=== PATIENT | female | born 1945 | race Caucasian/White ===

== ENCOUNTER 2019-07-06 08:39 | Emergency (ER) | payer MEDICARE, OTHER ==
[2019-07-06] MEDS: Sodium Chloride 0.9% 10 ML Syringe FLUSH PRN ×2 (08:55→09:05)
--- NOTE | 2019-07-06 09:07 | EDM.PDOC ---
ED HPI GENERAL MEDICAL PROBLEM - General Chief Complaint: Chest Pain Stated Complaint: CHEST PAIN Time Seen by Provider: 07/06/19 09:06 - History of Present Illness INITIAL COMMENTS - FREE TEXT/NARRATIVE: 73-year-old female presents emergency room with chest pain. This pain has been going on for couple of days. The patient has chronic upper back pain but now this is extending into her chest. At this moment she does not have chest discomfort. This pain is triggered by doing things with her arms and it usually makes the back pain worse first. 2 days ago she had some discomfort with deep breathing but this seems to gotten better. Patient denies any fevers or chills. She has not had any recent illnesses. Patient does not have a history of coronary artery disease however she has a significant history of hypertension on multiple medications, and is treated for hyperlipidemia. No history of smoking or other illicit drug use. At times the patient has had some mild nausea with the chest discomfort however the chest discomfort is not brought on by walking. She has not had any radiating pain into her neck and jaw or arms. Chest Pain Score (Numeric/FACES): 2 - Related Data Allergies Allergy/AdvReac Type Severity Reaction Status Date / Time No Known Allergies Allergy Verified 07/06/19 08:46 Home Meds: Home Meds Atenolol [Tenormin] 100 mg PO DAILY 07/09/15 [History] Calcium Carbonate/Vitamin D3 [Calcium 1,000 + D3 Caplet] 1 tab PO BID 07/09/15 [ History] Cholecalciferol (Vitamin D3) [Vitamin D] 1,000 unit PO DAILY 07/09/15 [History] Hydrochlorothiazide/Lisinopril [Lisinopril-HCTZ 20-25 MG] 2 tab PO DAILY [History] Multivitamin [Daily Multiple Vitamin] 1 tab PO DAILY 07/09/15 [History] Omeprazole 20 mg PO ACBRK 07/09/15 [History] Simvastatin [Zocor] 10 mg PO BEDTIME 07/09/15 [History] amLODIPine [Norvasc] 10 mg PO DAILY 07/09/15 [History] Aspirin [Halfprin] 81 mg PO DAILY 07/06/19 [History] Past Medical History HEENT History: Reports: Cataract, Impaired Vision Other HEENT History: wears eye glasses Cardiovascular History: Reports: Hypertension Gastrointestinal History: Reports: Other (See Below) Other Gastrointestinal History: perferated bowel 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: Musculoskeletal History: Reports: Fracture - Infectious Disease History Infectious Disease History: Reports: Chicken Pox, Mumps - Past Surgical History HEENT Surgical History: Reports: Cataract Surgery, Tonsillectomy GI Surgical History: Reports: Other (See Below) Other GI Surgeries/Procedures: repair of perf bowel Social & Family History - Tobacco Use Smoking Status *Q: Never Smoker Second Hand Smoke Exposure: No - Caffeine Use Caffeine Use: Reports: Coffee - Recreational Drug Use Recreational Drug Use: No ED ROS GENERAL - Review of Systems Review Of Systems: See Below Constitutional: Reports: No Symptoms HEENT: Reports: No Symptoms Respiratory: Reports: Pleuritic Chest Pain Cardiovascular: Reports: Chest Pain (Worse with doing things with her arms) GI/Abdominal: Reports: Nausea. Denies: Abdominal Pain, Vomiting : Reports: No Symptoms Musculoskeletal: Reports: Back Pain Skin: Reports: No Symptoms Neurological: Reports: No Symptoms Psychiatric: Reports: No Symptoms Hematologic/Lymphatic: Reports: No Symptoms Immunologic: Reports: No Symptoms ED EXAM, GENERAL - Physical Exam Exam: See Below Exam Limited By: No Limitations General Appearance: Alert, No Apparent Distress Head: Atraumatic, Normocephalic Neck: Normal Inspection, Supple, Non-Tender, Full Range of Motion. No: Lymphadenopathy (L), Lymphadenopathy (R) Respiratory/Chest: No Respiratory Distress, Lungs Clear, Normal Breath Sounds Cardiovascular: Regular Rate, Rhythm, No Edema, No Murmur GI/Abdominal: Normal Bowel Sounds, Soft, Non-Tender Back Exam: Other (She has some discomfort in the mid and upper thoracic back with some noticeable kyphotic changes) Extremities: Normal Inspection, Non-Tender, No Pedal Edema Neurological: Alert, Oriented, Normal Cognition Psychiatric: Normal Affect, Normal Mood Skin Exam: Warm, Dry, Intact EKG INTERPRETATION P-Wave: Present QRS: Normal ST-T: Other (Inverted T's in 3 and aVF minimal nondiagnostic ST depression in leads V4 and V5 and to a lesser degree V6) QT: Normal Comparison: NA - No Prior EKG Course - Vital Signs Last Recorded V/S: Last Vital Signs Temp 36.1 C 07/06/19 08:40 Pulse 55 L 07/06/19 10:13 Resp 14 07/06/19 10:13 BP 116/65 07/06/19 10:13 Pulse Ox 98 07/06/19 10:13 - Orders/Labs/Meds Orders: Active Orders 24 hr Category Date Time Status EKG 12 Lead [EKG Documentation Completion] [RC] STAT Care 07/06/19 08:45 Active Chest 1V Frontal [CR] Stat Exams 07/06/19 08:45 Taken Sodium Chloride 0.9% [Normal Saline] 100 ml Med 07/06/19 11:15 Active IV ASDIRECTED Sodium Chloride 0.9% [Saline Flush] Med 07/06/19 08:47 Active 10 ml FLUSH ASDIRECTED PRN Saline Lock Insert [OM.PC] Routine Oth 07/06/19 08:47 Ordered Medication Orders Sodium Chloride (Normal Saline) 100 mls @ 60 mls/hr IV ASDIRECTED WALDEMAR Last Admin: 07/06/19 11:42 Dose: 60 mls/hr Sodium Chloride (Saline Flush) 10 ml FLUSH ASDIRECTED PRN PRN Reason: Keep Vein Open Last Admin: 07/06/19 09:05 Dose: 10 ml Labs: Laboratory Tests 07/06/19 07/06/19 07/06/19 Range/Units 09:02 09:02 09:02 WBC 11.30 H (3.98-10.04) K/mm3 RBC 5.01 (3.98-5.22) M/mm3 Hgb 14.1 (11.2-15.7) gm/L Hct 43.3 (34.1-44.9) % MCV 86.4 (79.4-94.8) fl MCH 28.1 (25.6-32.2) pg MCHC 32.6 (32.2-35.5) g/dl RDW Std Deviation 45.1 (36.4-46.3) fL Plt Count 186 (182-369) K/mm3 MPV 11.5 (9.4-12.3) fl Neut % (Auto) 72.6 H (34.0-71.1) % Lymph % (Auto) 15.4 L (19.3-51.7) % [place] % (Auto) 7.3 (4.7-12.5) % Eos % (Auto) 4.2 (0.7-5.8) Baso % (Auto) 0.3 (0.1-1.2) % Neut # (Auto) 8.20 H (1.56-6.13) K/mm3 Lymph # (Auto) 1.74 (1.18-3.74) K/mm3 [place] # (Auto) 0.83 H (0.24-0.36) K/mm3 Eos # (Auto) 0.48 H (0.04-0.36) K/mm3 Baso # (Auto) 0.03 (0.01-0.08) K/mm3 Manual Slide Review Not Reportable PT 10.2 (9.7-12.0) SECONDS INR 0.93 APTT 25 (22-31) SECONDS D-Dimer, Quantitative (0.19-0.50) mg/L Sodium 140 (136-145) mEq/L Potassium 4.0 (3.5-5.1) mEq/L Chloride 103 (98-107) mEq/L Carbon Dioxide 26 (21-32) mEq/L Anion Gap 15.0 (5-15) BUN 33 H (7-18) mg/dL Creatinine 1.3 H (0.55-1.02) mg/dL Est Cr Clr Drug Dosing 32.78 mL/min Estimated GFR (MDRD) 40 (>60) mL/min BUN/Creatinine Ratio 25.4 H (14-18) Glucose 110 (83-115) mg/dL Calcium 9.8 (8.5-10.1) mg/dL Total Bilirubin 0.6 (0.2-1.0) mg/dL AST 13 L (15-37) U/L ALT 19 (14-59) U/L Alkaline Phosphatase 60 (46-116) U/L CK-MB (CK-2) 1.0 (0-3.6) ng/ml Troponin I < 0.017 (0.00-0.056) ng/mL Total Protein 7.2 (6.4-8.2) g/dl Albumin 4.1 (3.4-5.0) g/dl Globulin 3.1 gm/dL Albumin/Globulin Ratio 1.3 (1-2) 07/06/19 Range/Units 09:02 WBC (3.98-10.04) K/mm3 RBC (3.98-5.22) M/mm3 Hgb (11.2-15.7) gm/L Hct (34.1-44.9) % MCV (79.4-94.8) fl MCH (25.6-32.2) pg MCHC (32.2-35.5) g/dl RDW Std Deviation (36.4-46.3) fL Plt Count (182-369) K/mm3 MPV (9.4-12.3) fl Neut % (Auto) (34.0-71.1) % Lymph % (Auto) (19.3-51.7) % [place] % (Auto) (4.7-12.5) % Eos % (Auto) (0.7-5.8) Baso % (Auto) (0.1-1.2) % Neut # (Auto) (1.56-6.13) K/mm3 Lymph # (Auto) (1.18-3.74) K/mm3 [place] # (Auto) (0.24-0.36) K/mm3 Eos # (Auto) (0.04-0.36) K/mm3 Baso # (Auto) (0.01-0.08) K/mm3 Manual Slide Review PT (9.7-12.0) SECONDS INR APTT (22-31) SECONDS D-Dimer, Quantitative 1.20 H (0.19-0.50) mg/L Sodium (136-145) mEq/L Potassium (3.5-5.1) mEq/L Chloride (98-107) mEq/L Carbon Dioxide (21-32) mEq/L Anion Gap (5-15) BUN (7-18) mg/dL Creatinine (0.55-1.02) mg/dL Est Cr Clr Drug Dosing mL/min Estimated GFR (MDRD) (>60) mL/min BUN/Creatinine Ratio (14-18) Glucose (83-115) mg/dL Calcium (8.5-10.1) mg/dL Total Bilirubin (0.2-1.0) mg/dL AST (15-37) U/L ALT (14-59) U/L Alkaline Phosphatase (46-116) U/L CK-MB (CK-2) (0-3.6) ng/ml Troponin I (0.00-0.056) ng/mL Total Protein (6.4-8.2) g/dl Albumin (3.4-5.0) g/dl Globulin gm/dL Albumin/Globulin Ratio (1-2) Meds: Medications Generic Name Dose Route Start Last Admin Trade Name Anujq PRN Reason Stop Dose Admin Sodium Chloride 100 mls @ 60 mls/hr 07/06/19 11:15 07/06/19 11:42 Normal Saline IV 60 mls/hr ASDIRECTED WALDEMAR Administration Sodium Chloride 10 ml 07/06/19 08:47 07/06/19 09:05 Saline Flush FLUSH 10 ml ASDIRECTED PRN Administration Keep Vein Open Discontinued Medications Generic Name Dose Route Start Last Admin Trade Name Freq PRN Reason Stop Dose Admin Aspirin 324 mg 07/06/19 09:15 07/06/19 09:25 Aspirin PO 07/06/19 09:16 324 mg ONETIME ONE Administration Sodium Chloride 1,000 mls @ 999 mls/hr 07/06/19 10:57 Normal Saline IV 07/06/19 11:57 ONETIME ONE Iopamidol 100 ml 07/06/19 11:06 07/06/19 11:42 Isovue-370 (76%) IVPUSH 07/06/19 11:07 100 ml ONETIME ONE Administration Sodium Chloride 10 ml 07/06/19 11:06 07/06/19 11:42 Saline Flush FLUSH 07/06/19 11:07 10 ml ONETIME ONE Administration - Re-Assessments/Exams Free Text/Narrative Re-Assessment/Exam: 07/06/19 12:30 Laboratory evaluation was for the most part nondiagnostic except her d-dimer was elevated. We gave the patient 500 mL of an SN then sent her over for a CTA which was negative for blood clot in her lungs however she does have what looks like a little bit of a goiter on the left side of her thyroid. She's had a thyroid nodule removed in the past. At this point the patient would like to go home. With her pain being aggravated by her using her arms it probably is muscle skeletal in origin but at her age close follow-up is needed. I did offer to check a second troponin the patient declined this. Departure - Departure Time of Disposition: 12:32 Disposition: Home, Self-Care 01 Clinical Impression: Chest pain Referrals: Tika Penaloza, PREPARATION OPERATOR [Primary Care Provider] - Forms: ED Department Discharge Additional Instructions: Return to the emergency room with any questions problems worsening symptoms. Follow-up with your regular provider early next week discuss further thyroid testing. Also discussed any other heart testing that needs to be done. Continue your routine medications. - My Orders Last 24 Hours: My Active Orders 07/06/19 08:45 EKG 12 Lead [EKG Documentation Completion] [RC] STAT Chest 1V Frontal [CR] Stat 07/06/19 08:47 Sodium Chloride 0.9% [Saline Flush] 10 ml FLUSH ASDIRECTED PRN Saline Lock Insert [OM.PC] Routine 07/06/19 11:15 Sodium Chloride 0.9% [Normal Saline] 100 ml IV ASDIRECTED - Assessment/Plan Last 24 Hours: My Active Orders 07/06/19 08:45 EKG 12 Lead [EKG Documentation Completion] [RC] STAT Chest 1V Frontal [CR] Stat 07/06/19 08:47 Sodium Chloride 0.9% [Saline Flush] 10 ml FLUSH ASDIRECTED PRN Saline Lock Insert [OM.PC] Routine 07/06/19 11:15 Sodium Chloride 0.9% [Normal Saline] 100 ml IV ASDIRECTED
[2019-07-06] MEDS ORDERED: Aspirin 81 MG Tab.Chew PO ONE (09:15)
[2019-07-06] MEDS ORDERED: Sodium Chloride 0.9% 1,000 ML IV ONE (10:57)
[2019-07-06] MEDS ORDERED: Iopamidol 755 Mg/ML 100 ML Bottle IVPUSH ONE (11:06)
[2019-07-06] MEDS ORDERED: Sodium Chloride 0.9% 10 ML Syringe FLUSH ONE (11:06)
[2019-07-06] MEDS ORDERED: Sodium Chloride 0.9% 100 ML IV SCH (11:15)
--- NOTE | 2019-07-06 12:14 | CT ---
CT chest Technique: Multiple axial sections through the chest were obtained. Intravenous contrast was utilized. Comparison: No prior CT chest study, previous chest x-ray performed earlier on the same day (9:21 AM) Findings: No filling defects are identified to indicate pulmonary embolism. Slightly enlarged left lobe of the thyroid gland is seen with mild substernal extension which is most likely due to thyroid goiter. Atherosclerotic calcification is noted within the aorta with no aneurysm. Slightly ectatic ascending aorta is seen with AP measurement of 3.6 cm. Mediastinum shows small lymph nodes which are normal in size. No hilar abnormalities are seen. No pericardial effusion is seen. Small hiatal hernia is noted. Visualized portions of the upper abdominal structures show no discrete abnormality. No axillary adenopathy is seen. Mild dependent atelectasis is seen. Area of discoid atelectasis are seen within both lung bases. Lungs otherwise are clear with nothing acute being seen within either lung. Bone window settings were reviewed which showed no acute osseous abnormality. Mild degenerative change is scattered within the spine. Several compression deformities are seen within the mid and lower thoracic spine which are likely old. Impression: 1. No findings of pulmonary embolism. 2. Other findings as noted above are believed to be incidental. Nothing acute is appreciated. Diagnostic code #2
[2019-07-06 13:05] VITALS: BP 122/66
--- NOTE | 2019-07-07 09:11 | CR ---
Chest: Portable view of the chest was obtained. Comparison: No prior chest x-ray. Heart is mildly enlarged. Tortuous thoracic aorta is seen. Lungs show mild left basilar atelectasis. Lungs otherwise are clear. Bony structures show nothing acute. Impression: 1. Mild left basilar atelectasis. 2. Mildly enlarged heart. 3. Nothing acute is otherwise seen on portable chest x-ray. Diagnostic code #2
== END 2019-07-06 12:50 | disposition home or self-care (01) ==
LOC: JD.ED 08:39
DX: R07.9 Chest pain, unspecified (principal); M54.6 Pain in thoracic spine; I10 Essential (primary) hypertension; Z79.82 Long term (current) use of aspirin; Z79.899 Other long term (current) drug therapy
CPT/HCPCS: 36415; 71045; 71275; 80053; 82553; 84484; 85025; 85379; 85610; 85730; 93005; 96360; 99285; A9270; J7030; J7040; Q9967

== ENCOUNTER 2020-05-06 05:49 | Emergency (ER) | payer MEDICARE, OTHER ==
[2020-05-06 06:01] VITALS: BP 136/67; PULSE 62
--- NOTE | 2020-05-06 06:15 | EDM.PDOC ---
ED HPI GENERAL MEDICAL PROBLEM - General Chief Complaint: Chest Pain Stated Complaint: chest and back pain Time Seen by Provider: 05/06/20 06:00 - History of Present Illness INITIAL COMMENTS - FREE TEXT/NARRATIVE: 74-year-old female presents the emergency room with chest pain. This pain is been going on since , going on its fifth day. This pain seems to be related to her back pain. Patient is chronic back pain and when she is really active and using her arms she sometimes gets chest pain. The patient is noticed that when she picks up bird feed she develops this chest pain. The patient does take a daily aspirin and is treated for hypertension, on several medications. I did see this patient back in July of this last year for similar condition. After that visit she did follow-up and have a stress Cardi olite that was unrevealing. At this time the patient is not having chest pain she is just having her typical back pain. The patient uses Tylenol for her back and when she remembers to take it this seems to help. The patient is not having any shortness of breath no nausea and vomiting. The pain she describes seems to be bandlike just below her breast. Epigastric Pain Score (Numeric/FACES): 4 - Related Data Allergies Allergy/AdvReac Type Severity Reaction Status Date / Time No Known Allergies Allergy Verified 05/06/20 06:12 Home Meds: Home Meds Calcium Carbonate/Vitamin D3 [Calcium 1,000 + D3 Caplet] 600 tab PO DAILY 07/09/15 [History] Cholecalciferol (Vitamin D3) [Vitamin D] 2,000 unit PO DAILY 07/09/15 [History] Hydrochlorothiazide/Lisinopril [Lisinopril-HCTZ 20-25 MG] 2 tab PO DAILY 07/09/15 [History] Multivitamin [Daily Multiple Vitamin] 1 tab PO DAILY 07/09/15 [History] Simvastatin [Zocor] 10 mg PO BEDTIME 07/09/15 [History] amLODIPine [Norvasc] 10 mg PO DAILY 07/09/15 [History] atenoloL [Tenormin] 100 mg PO DAILY 07/09/15 [History] Aspirin [Halfprin] 81 mg PO DAILY 07/06/19 [History] Acetaminophen [Tylenol Extra Strength] 1,000 mg PO DAILY PRN MDD 4200 05/06/20 [History] Ranitidine [Zantac] 150 mg PO BID 05/06/20 [History] Past Medical History HEENT History: Reports: Cataract, Impaired Vision Other HEENT History: wears eye glasses Cardiovascular History: Reports: Hypertension Gastrointestinal History: Reports: Other (See Below) Other Gastrointestinal History: perferated bowel 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 Denies: Dyspnea on Exertion, Palpitations Endocrine: Reports: No Symptoms GI/Abdominal: Reports: No Symptoms : Reports: No Symptoms Musculoskeletal: Reports: Back Pain Neurological: Reports: No Symptoms ED EXAM, GENERAL - Physical Exam Exam: See Below Exam Limited By: No Limitations General Appearance: Alert, No Apparent Distress, Other (She is not actively having chest pain at this time) Head: Atraumatic, Normocephalic Neck: Thyromegaly (Nodules noted) Respiratory/Chest: No Respiratory Distress, Lungs Clear, Normal Breath Sounds Cardiovascular: Regular Rate, Rhythm, No Edema, No Murmur GI/Abdominal: Normal Bowel Sounds, Soft, Non-Tender Back Exam: Normal Inspection. No: CVA Tenderness (L), CVA Tenderness (R) Extremities: Normal Inspection, No Pedal Edema Neurological: Alert, Oriented, Normal Cognition EKG INTERPRETATION EKG Date: 05/06/20 Rhythm: NSR [place]: LAD-Left [place] Deviation P-Wave: Present QRS: Normal ST-T: Other (Specific nondiagnostic changes largely unchanged from July 03) QT: Normal Comparison: Change From Previous EKG (Subtle changes most likely due to lead placement) Course - Vital Signs Last Recorded V/S: Last Vital Signs Temp 36.6 C 05/06/20 05:56 Pulse 62 05/06/20 05:56 Resp 23 H 05/06/20 05:56 BP 136/67 05/06/20 05:56 Pulse Ox 97 05/06/20 05:56 - Orders/Labs/Meds Orders: Active Orders 24 hr Category Date Time Status EKG 12 Lead [EKG Documentation Completion] [RC] URGENT Care 05/06/20 05:50 Active Chest 1V Frontal [CR] Stat Exams 05/06/20 06:15 Taken Labs: Laboratory Tests 05/06/20 05/06/20 05/06/20 Range/Units 06:07 06:07 06:07 WBC 9.18 (3.98-10.04) K/mm3 RBC 5.29 H (3.98-5.22) M/mm3 Hgb 14.6 (11.2-15.7) gm/dl Hct 46.4 H (34.1-44.9) % MCV 87.7 (79.4-94.8) fl MCH 27.6 (25.6-32.2) pg MCHC 31.5 L (32.2-35.5) g/dl RDW Std Deviation 42.9 (36.4-46.3) fL Plt Count 209 (182-369) K/mm3 MPV 11.4 (9.4-12.3) fl Neut % (Auto) 73.3 H (34.0-71.1) % Lymph % (Auto) 16.4 L (19.3-51.7) % [place] % (Auto) 8.5 (4.7-12.5) % Eos % (Auto) 1.2 (0.7-5.8) Baso % (Auto) 0.4 (0.1-1.2) % Neut # (Auto) 6.72 H (1.56-6.13) K/mm3 Lymph # (Auto) 1.51 (1.18-3.74) K/mm3 [place] # (Auto) 0.78 H (0.24-0.36) K/mm3 Eos # (Auto) 0.11 (0.04-0.36) K/mm3 Baso # (Auto) 0.04 (0.01-0.08) K/mm3 PT 10.3 (9.7-12.0) SECONDS INR 0.94 APTT 27 (22-31) SECONDS Sodium 141 (136-145) mEq/L Potassium 4.0 (3.5-5.1) mEq/L Chloride 103 (98-107) mEq/L Carbon Dioxide 27 (21-32) mEq/L Anion Gap 15.0 (5-15) BUN 27 H (7-18) mg/dL Creatinine 1.3 H (0.55-1.02) mg/dL Est Cr Clr Drug Dosing 30.93 mL/min Estimated GFR (MDRD) 40 (>60) mL/min BUN/Creatinine Ratio 20.8 H (14-18) Glucose 107 (83-115) mg/dL Calcium 10.2 H (8.5-10.1) mg/dL Total Bilirubin 0.6 (0.2-1.0) mg/dL AST 17 (15-37) U/L ALT 29 (14-59) U/L Alkaline Phosphatase 69 (46-116) U/L Troponin I < 0.017 (0.00-0.056) ng/mL Total Protein 7.6 (6.4-8.2) g/dl Albumin 4.2 (3.4-5.0) g/dl Globulin 3.4 gm/dL Albumin/Globulin Ratio 1.2 (1-2) TSH 3rd Generation (0.358-3.74) uIU/mL 05/06/20 Range/Units 06:07 WBC (3.98-10.04) K/mm3 RBC (3.98-5.22) M/mm3 Hgb (11.2-15.7) gm/dl Hct (34.1-44.9) % MCV (79.4-94.8) fl MCH (25.6-32.2) pg MCHC (32.2-35.5) g/dl RDW Std Deviation (36.4-46.3) fL Plt Count (182-369) K/mm3 MPV (9.4-12.3) fl Neut % (Auto) (34.0-71.1) % Lymph % (Auto) (19.3-51.7) % [place] % (Auto) (4.7-12.5) % Eos % (Auto) (0.7-5.8) Baso % (Auto) (0.1-1.2) % Neut # (Auto) (1.56-6.13) K/mm3 Lymph # (Auto) (1.18-3.74) K/mm3 [place] # (Auto) (0.24-0.36) K/mm3 Eos # (Auto) (0.04-0.36) K/mm3 Baso # (Auto) (0.01-0.08) K/mm3 PT (9.7-12.0) SECONDS INR APTT (22-31) SECONDS Sodium (136-145) mEq/L Potassium (3.5-5.1) mEq/L Chloride (98-107) mEq/L Carbon Dioxide (21-32) mEq/L Anion Gap (5-15) BUN (7-18) mg/dL Creatinine (0.55-1.02) mg/dL Est Cr Clr Drug Dosing mL/min Estimated GFR (MDRD) (>60) mL/min BUN/Creatinine Ratio (14-18) Glucose (83-115) mg/dL Calcium (8.5-10.1) mg/dL Total Bilirubin (0.2-1.0) mg/dL AST (15-37) U/L ALT (14-59) U/L Alkaline Phosphatase (46-116) U/L Troponin I (0.00-0.056) ng/mL Total Protein (6.4-8.2) g/dl Albumin (3.4-5.0) g/dl Globulin gm/dL Albumin/Globulin Ratio (1-2) TSH 3rd Generation 0.958 (0.358-3.74) uIU/mL Meds: Medications Discontinued Medications Generic Name Dose Route Start Last Admin Trade Name Freq PRN Reason Stop Dose Admin Aspirin 324 mg 05/06/20 06:17 05/06/20 06:27 Aspirin PO 05/06/20 06:18 324 mg ONETIME ONE Administration - Re-Assessments/Exams Free Text/Narrative Re-Assessment/Exam: 05/06/20 07:00 Laboratory evaluation is unrevealing her troponin is negative. Her creatinine is 1.3 but this is where it has been running. I did find her stress test results from this last August and they are reassuring. Her troponin is below our detectable limits at less than 0.017. The patient would like to go home at this time and this is reasonable Departure - Departure Time of Disposition: 07:01 Disposition: Home, Self-Care 01 Clinical Impression: Non-cardiac chest pain Referrals: Tika Penaloza INDUSTRIAL MACHINE ASSEMBLER [Primary Care Provider] - Forms: ED Department Discharge Additional Instructions: Return to the emergency room with any questions problems or worsening symptoms. Continue taking your current medications. Follow-up with your regular healthcare provider as needed. Sepsis Event Note (ED) - Evaluation Sepsis Screening Result: No Definite Risk - Focused Exam Vital Signs: Vital Signs Temp Pulse Resp BP Pulse Ox 05/06/20 05:56 36.6 C 62 23 H 136/67 97 - My Orders Last 24 Hours: My Active Orders 05/06/20 05:50 EKG 12 Lead [EKG Documentation Completion] [RC] URGENT 05/06/20 06:15 Chest 1V Frontal [CR] Stat - Assessment/Plan Last 24 Hours: My Active Orders 05/06/20 05:50 EKG 12 Lead [EKG Documentation Completion] [RC] URGENT 05/06/20 06:15 Chest 1V Frontal [CR] Stat
[2020-05-06] MEDS ORDERED: Aspirin 81 MG Tab.Chew PO ONE (06:17)
--- NOTE | 2020-05-06 07:11 | CR ---
Chest: Portable view of the chest was obtained. Comparison: Prior chest x-ray of 07/06/19. Mild linear scarring is noted within the left lung base. Lungs otherwise are clear. Heart size and mediastinum are normal. Bony structures are grossly intact. Impression: 1. Mild scarring within the left lung base. 2. Nothing acute is appreciated on portable chest x-ray. Diagnostic code #2 This report was dictated in MDT
== END 2020-05-06 07:30 | disposition home or self-care (01) ==
LOC: JD.ED 05:49
DX: R07.89 Other chest pain (principal); I10 Essential (primary) hypertension; Z79.899 Other long term (current) drug therapy; Z79.82 Long term (current) use of aspirin
CPT/HCPCS: 36415; 71045; 80053; 84443; 84484; 85025; 85610; 85730; 93005; 99285; A9270